=== PATIENT | male | born 1965 | race Caucasian/White ===

== ENCOUNTER 2017-06-26 21:00 | Inpatient (IN) | payer SELFPAY ==
[~2017-06-26] VITALS: Ht 185.4 cm; Wt 127.2 kg
[~2017-06-26 21:00] MED LIST: HYDR25TA4 PO; Metoprolol Tartrate PO
[2017-06-26 21:02] VITALS: BP 212/93; PULSE 54; RESP 18; O2SAT 100
--- NOTE | 2017-06-26 21:50 | DRSVH ---
PROCEDURE: X-RAY CHEST ONE VIEW, PORTABLE ([id number]) INDICATIONS: CHEST PAIN TECHNIQUE: One view of the chest was acquired. COMPARISON: [facility], , CHEST 1VW (PORTABLE), 12/19/2014, 17:52. FINDINGS: Surgical changes and devices: None. Lungs and pleura: No pleural effusions or pneumothorax. Lungs are clear. Mediastinum: Mediastinal contours appear normal. Heart size is normal. Bones and chest wall: No suspicious bony lesions. Overlying soft tissues appear unremarkable. IMPRESSION: No acute pulmonary process. Dictated by: Neli Villar M.D. on 06/26/2017 at 21:48 Approved by: Neli Villar M.D. on 06/26/2017 at 21:48
[2017-06-26 21:59] LABS: BASOPHILS % (AUTO) 0.5 % (0-3); EOSINOPHILS % (AUTO) 2.9 % (0-5); MONOCYTES % (AUTO) 7.7 % (4-12); Mean Corpuscular Hemoglobin 28.3 pg (27.0-35.0); Mean Corpuscular Volume 84.4 fL (81-100); NEUTROPHILS % (AUTO) 61.6 % (40-74); Platelet Count 232 bil/L (150-400)
[2017-06-26 22:22] LABS: TROPONIN T 0.01 ug/L (0.0-0.011)
[2017-06-26 22:33] LABS: Magnesium 2.1 mg/dL (1.6-2.6)
--- NOTE | 2017-06-26 22:45 | ED.REPORT ---
HPI-General Illness Date of Service Jun 26, 2017 ED Provider: Jarrod Camejo MD The pt is a 52 y/o male with a hx of stage 3 chronic kidney disease and HTN who presents to the ED complaining of 6/10 chest pain described as pressure, nonradiating, onset today while he was exerting himself at work. He has had this pain for a week but it significantly worsened today. His pain resolves when he is at rest. Associated sx include high BP of 163/101 and shortness of breath with pain, and fatigue. Not having shortness of breath independent of his pain. He denies any other sx like lightheadedness, headache, abdominal pain , diarrhea, constipation. vomiting, hematemesis, hematuria and hematochezia. In the ED, the pt feels significantly better resting in the bed. Nursing Notes Stated Complaint: CHEST PAIN Chief Complaint: Chest Pain Nursing Notes Reviewed: Yes Allergies: Coded Allergies: Penicillins (Verified Allergy, Unknown, UNKNOWN, 06/26/17) Scheduled ([Metoprolol Tartrate]) 25 MG TABLET 25 MG PO Q12 General Time Seen by MD: 23:11 Chief Complaint Chest pain Hx Obtained From: Patient Arrived By: Walk-in Sudden in Onset?: Yes Onset Occurred: 5 - 8 hours ago Symptom Duration: 1 - 15 minutes (only when exerting himself) Location: : Chest Quality: Pressure Radiation: : Does not radiate Severity: Current: No pain currently Severity: Maximum: Pain level 6 out of 10 Recent Healthcare: No recent doctor visit Similar Sx Previous: No Past Medical History Past Medical History Stage 3 kidney disease Reports: Hypertension Past Surgical History Knee surgery Family History Grandfather (maternal) at 40 Father had multiple OH Smoking History Never Smoker Social History Alcohol Use: "Social" Ambulatory Status Independent Review of Systems Reports: hypertension Full Review of Systems Constitutional: Reports: Fatigue Eyes: Denies: Visual loss bilateral Ears / Nose / Throat: Denies: Sore throat Respiratory: Reports: Shortness of breath (with exertion) Cardiovascular: Reports: Chest pain GI: Denies: Abdominal pain, Constipation, Diarrhea, Hematemesis, Hematochezia, Vomiting Male: Denies Hematuria Musculoskeletal: Denies: Back pain Endocrine: Denies: Polyuria Skin: Denies Rash Neurologic: Denies: Headache, Lightheaded Psychiatric: Denies: Change mental status Complete sys rev & neg: except as marked. Physical Exam Nursing note and vitals reviewed. Constitutional: Well-developed, well-nourished. Not diaphoretic. Head: Normocephalic and atraumatic. Mouth/Throat: Oropharynx is clear and moist. No oropharyngeal exudate. Eyes: EOM are normal. Pupils are equal, round, and reactive to light. Neck: Supple, no tracheal deviation. Cardiovascular: Bradycardia, regular rhythm. Equal and intact distal pulses throughout. Pulmonary/Chest: Effort normal and breath sounds normal. No respiratory distress. Abdominal: Soft. No distension. There is no tenderness, rebound, or guarding. Bowel sounds present. Musculoskeletal: Range of motion grossly intact, moving all extremities. No edema or tenderness appreciated. Neurological: AOx3. Grossly nonfocal exam. Strength and sensation intact and equal to bilateral upper and lower extremities. Skin: Warm and dry, no rashes or pallor appreciated. Psychiatric: Appropriate mood and affect. Behavior appears normal. Vital Signs Vital Signs Date Time Temp Pulse Resp B/P Pulse Ox O2 Delivery O2 Flow Rate FiO2 06/27/17 00:23 52 16 179/86 99 Room Air 06/26/17 21:02 36.5 54 18 212/93 100 Room Air Interpretation & Diagnostics Lab Results Interpretation Result Diagram: 06/26/17213906/26/172139 Test 06/26/17 21:40 White Blood Count 7.9th/mm3 (3.8-10.1) Red Blood Count 5.05mil/mm3 (4.40-5.80) Hemoglobin 14.3g/dL (13.8-17.2) Hematocrit 42.6% (41.0-50.0) Mean Corpuscular Volume 84.4fL (81-100) Mean Corpuscular Hemoglobin 28.3pg (27.0-35.0) Mean Corpuscular Hemoglobin Concent 33.6% (32.0-37.0) Red Cell Distribution Width 13.3% (12.3-15.4) Platelet Count 232bil/L (150-400) Neutrophils (%) (Auto) 61.6% (40-74) Lymphocytes (%) (Auto) 27.2% (14-46) Monocytes (%) (Auto) 7.7% (4-12) Eosinophils (%) (Auto) 2.9% (0-5) Basophils (%) (Auto) 0.5% (0-3) Sodium Level 138mEq/L (134-144) Potassium Level 3.9mEq/L (3.5-5.2) Chloride Level 99mEq/L (97-108) Carbon Dioxide Level 23mmol/L (18-29) Blood Urea Nitrogen 25mg/dL (6-24) Creatinine 1.72mg/dL (0.76-1.27) Estimat Glomerular Filtration Rate 44mL/min (>59) Glucose Level 104mg/dL (60-99) Calcium Level 9.2mg/dL (8.5-10.1) Magnesium Level 2.1mg/dL (1.6-2.6) Total Bilirubin 0.4mg/dL (0.0-1.2) Aspartate Amino Transf (AST/SGOT) 33U/L (0-50) Alanine Aminotransferase (ALT/SGPT) 40U/L (0-44) Alkaline Phosphatase 78U/L (25-150) Troponin T 0.010ug/L (0.0-0.011) Total Protein 7.4g/dL (6.4-8.4) Albumin 4.2g/dL (3.4-5.0) Hold Davila Top Tube Received (Received) ECG Interpretation ECG Interpretation: Bradycardia. Rate 46. Atrial premature complex Time: 21:27 Interpreted by: ED physician X-Ray Chest Interpretation Chest Xray Interpretation: IMPRESSION: No acute pulmonary process. Dictated by: Neli Villar M.D. on 06/26/2017 at 21:48 Approved by: Neli Villar M.D. on 06/26/2017 at 21:48 View: Portable, 1 view Interpretation / Wet Read by: Interpret - Radiologist Re-Eval/Medical Decision Med Decision/Clinical Course In summary, 52-year-old male presenting to the ED for evaluation of midsternal, nonradiating, exertional chest pain that started 1 week ago, worse today. Differential includes ACS, PE, pneumothorax, aortic dissection, etc. EKG demonstrates sinus bradycardia with no acute ischemic changes; initial troponin negative. Not having any chest pain at this time. HEART score of 5. Not having any pleuritic symptoms, no shortness of breath independent of when he is exerting himself, low risk by Well's score. Not radiating through to the back, no widened mediastinum on chest x-ray, equal pulses to bilateral upper and lower extremities, no neurologic symptoms; air dissection seems extremely unlikely. No evidence of pneumothorax on exam or x-ray. Laboratory studies reviewed and notable for creatinine of 1.72 from 1.05 2 years ago. CBC grossly within normal limits, CMP otherwise grossly within normal limits. Given concerning story and patient's risk, plan admission for further management and evaluation, likely stress test in the morning. Patient agreeable to the plan as stated, no further questions. Discussed with cardiology and the hospitalist as per below. Source of Hx: Old records Time of Eval: 23:30 Re-Evaluation/Progress Note: Discussed lab results, imaging results, diagnosis and plan to admit. The pt understands and agrees with the plan. All questions answered. Consultation #1: Referral / Consult Name: Armand Cunha MD Consulted With: Java Lead: Agrees with eval, Agrees with plan Consultation #2: Referral / Consult Name: Collin Lynn MD Consulted With: Hospitalist Call Returned at: 23:19 Button Maker: Will see patient, Agrees with eval, Agrees with plan, Accepts admit Counseled Regarding: Diagnosis, Lab results, Need for admission Discharge & Departure Primary Impression: Chest pain Chest pain type: unspecified Qualified Code: R07.9 - Chest pain, unspecified Additional Impression: Acute kidney injury Disposition: ADMITTED TO HOSPITAL Referrals: Freddy Warner MD (PCP) Scribe Attestation Portions of this note were transcribed by Jayson Brown. I,, personally performed the history,physical exam and medical decision-making;I reviewed and confirmed the accuracy of the information in the transcribed note. Signed by [employer]. 06/26/17 Jarrod Camejo MD Jun 26, 2017 22:45 Jayson Brown Jun 26, 2017 23:04
[2017-06-26] MEDS ORDERED: Alum-Mag Hydrox-Simeth 30 mL Suspension PO PRN (23:35)
[2017-06-26] MEDS ORDERED: Ondansetron 2 mg/mL 2 mL Inj IVPUSH PRN (23:35)
[2017-06-26] MEDS ORDERED: Polyethylene Glycol (PEG) 17 Gm Powder PO PRN (23:35)
[2017-06-27] VITALS (9 sets, daily range): BP systolic 127–196; BP diastolic 74–98; PULSE 43–56; RESP 16–18; O2SAT 98–100
--- NOTE | 2017-06-27 01:16 | PCM.HPMED ---
Subjective Date of Service Jun 27, 2017 Primary Provider: Admitting Physician: Primary Care Physician: Freddy Warner MD Attending Physician: Chief Complaint: Chest Pain History of Present Illness: Patient is a 52 year old male with past medical history of HTN and CKD stage III who presented after an episode of chest pain during exertion yesterday afternoon while at work. Patient states the pain was a tight sensation that did not radiate. Pain was 7/10 and was relieved with rest. The episode lasted 5 minutes. Patient did not take any ASA or Nitro during the episode. Associated symptoms include SOB. Denies any diaphoresis, QUINTANILLA, N/V/D, or urinary sxs. He states that he has been having this chest tightness on exertion for the past week, but this episode was worse than his normal episodes. Patient reports that he has had a exercise stress test in the past through Dr. Hayes and that it was normal. He takes Metoprolol 100g daily, and feels that his medication makes him more tired than before. Patient denies any claudication symptoms during exertion. Review of Systems: ROS negative unless otherwise noted above. Allergies Coded Allergies: Penicillins (Verified Allergy, Unknown, UNKNOWN, 06/26/17) Home Medications ASA 81mg PO daily Losartan 50mg PO daily Metoprolol 100mg PO nightly. PMH HTN CKD Stage 3 Surgical History Right Knee surgery Family History Mother - CAD; HTN Father - CAD with an OK at age 39. Social History Hx Alcohol Use: Yes (occassional ) Hx Substance Use: No Smoking Status: Never Smoker Living Arrangement: with Family Exam Vital Signs Vital Sign - Last Date Time Temp Pulse Resp B/P Pulse Ox O2 Delivery O2 Flow Rate FiO2 06/27/17 00:23 52 16 179/86 99 Room Air 06/26/17 21:02 36.5 Exam Constitutional: Awake, alert and oriented x4, no acute distress Head: normocephalic and atraumatic Eyes: Pupils equal round and reactive to light, no scleral icterus Heart: Bradycardia with regular rhythm. no murmurs, rubs, or gallops, no peripheral edema Lungs: clear to auscultation, no wheeze, rales ,or rhonchi ABD: soft, nontender, bowel sounds present throughout Musculoskeletal: moves all four extremities appropriately Skin: warm, dry, no rash Neuro: CN II-XII intact. no focal deficits. Psych: Appropriate mood and affect. Lab and Diagnostics Labs Item Value Date Time Red Blood Count 5.05 mil/mm3 06/26/172139 Mean Corpuscular Volume 84.4 fL 06/26/172139 Mean Corpuscular Hemoglobin 28.3 pg 06/26/172139 Mean Corpuscular Hemoglobin Concent 33.6 % 06/26/172139 Red Cell Distribution Width 13.3 % 06/26/172139 Neutrophils (%) (Auto) 61.6 % 06/26/172139 Lymphocytes (%) (Auto) 27.2 % 06/26/172139 Monocytes (%) (Auto) 7.7 % 06/26/172139 Eosinophils (%) (Auto) 2.9 % 06/26/172139 Basophils (%) (Auto) 0.5 % 06/26/172139 Estimat Glomerular Filtration Rate 44 mL/min 06/26/172139 Calcium Level 9.2 mg/dL 06/26/172139 Magnesium Level 2.1 mg/dL 06/26/172139 Total Bilirubin 0.4 mg/dL 06/26/172139 Aspartate Amino Transf (AST/SGOT) 33 U/L 06/26/172139 Alanine Aminotransferase (ALT/SGPT) 40 U/L 06/26/172139 Alkaline Phosphatase 78 U/L 06/26/172139 Troponin T 0.010 ug/L 06/26/172139 Total Protein 7.4 g/dL 06/26/172139 Albumin 4.2 g/dL 06/26/172139 Result Diagram: 06/26/17213906/26/172139 X-Rays, CTs and MRIs PROCEDURE: X-RAY CHEST ONE VIEW, PORTABLE IMPRESSION: No acute pulmonary process. Dictated by: Neli Villar M.D. on 06/26/2017 at 21:48 12-lead ECG Sinus bradycardia HR 46 with premature atrial complexes Assessment & Plan Patient is a 52 year old male with past medical history of HTN and CKD stage III who presented after an episode of chest pain during exertion yesterday afternoon while at work. - Acute Unstable Angina, POA, Active - Patient presented after episode of CP that was worse than normal - Patient MARCO ANTONIO Risk Score 3, places pt at 13% risk for new OK; strong family h/ o CAD with father's first OK at age 39 - Consult Cardiology (), will see patient in AM and plan for stress test - Hold home dose Beta Beth - Continue Losartan for BP control - Morphine PRN - NTG PRN - ASA 81mg PO - AM labs: CBC, CMP, TSH, Lipid Panel, HgbA1c - Acute Uncontrolled HTN, POA, Active, Stable - Continue home dose of Losartan - Hold home dose of Metoprolol until after stress test - History of CKD Stage III, Chronic, Stable - Patient SCr on admission 1.72 without any recent baseline, reports no current urinary sxs. - Monitor Daughter is primary point of contact: Sharona [phone] Patient is FULL CODE Pain Evaluation: Adequate Pain Control GI Prophylaxis: Proton Pump Inhibitor VTE Prophylaxis Indicated: Contraindicated VTE Prophylaxis: SCDs VTE Mechanical Devices: Intermittant Pneumatic CD Resuscitation Status: CPR: Attempt Resuscitation Attending Statement The patient was seen and examined together with Dr. Maher on 06/26 and I agree with the history, exam and plan as outlined in the note above. Tomas Maher DO Jun 27, 2017 01:16 Collin Lynn MD Jun 27, 2017 06:35
[2017-06-27] MEDS ORDERED: METO-394 PO (02:18)
[2017-06-27] MEDS ORDERED: LOSA50TA37 PO (02:18)
[2017-06-27] MEDS ORDERED: Nitroglycerin 2% 1 Gm Ointment TOPICAL SCH (06:35)
--- NOTE | 2017-06-27 06:38 | NUR ---
Admit Admitted to 3003 from ED. Able to ambulate on arrival. Denies CP or discomfort. Denies SOB on RA. NPO for possible stress test. Toileting without any noted issues. Elevated BP noted. MD notified with new orders received. Awaiting pharmacy verification for medication removal and administration. Personal belongings at bedside per patient request. Oriented to call light use and using for needs.
[2017-06-27] MEDS ORDERED: ASPI-973 PO (09:48)
[2017-06-27] MEDS ORDERED: IBUP200C11 PO (09:49)
--- NOTE | 2017-06-27 09:54 | NUR ---
NITRO PASTE Nitro paste removed at this time for procedure.
--- NOTE | 2017-06-27 14:10 | NUR ---
Off Unit Pt left unit for STRESS Test at 1235, returned at 1400.
--- NOTE | 2017-06-27 17:16 | NUR ---
Social Work: Initial Assessment / Multidisciplinary Rounds Data: See initial assessment. Patient is a 52 year old male who was admitted on 06/27/17 for stable angina and acute or chronic renal insufficiency per H&P. Patient does not have any insurance at this time. Patient does not have a PCP at this time. EMR reviewed. SW met with patient to discuss discharge planning. SW role explained. Patient resides at home alone in [place]. Patient considers his daughter Sharona to be his main support person. Patient states that he does not have a DPOA or AD. SW has provided patient with AD and a luann application per his request. Patient confirms that he is I at baseline and able to perform all ADLs and care needs without any DME. Patient confirms that he drives via POV. Patient denies having a hx of home health services or SNF. Patient denies having assisted care insurance or VA benefits. Upon discharge, patient states that transportation will be provided by his daughter Sharona. SW provided patient with a discharge planning checklist booklet and encouraged to call with any questions or concerns. Patient was discussed in morning rounds. No concerns were noted by MD or staff. SW will continue to follow. Assessment: Patient will likely discharge home when medically stable. Plan: Patient will likely discharge home when medically stable. Transportation will be provided by patient's daughter Sharona. SW will continue to follow for needs. GABRIELLE Manjarrez Addendum: 06/27/17 at 1721 by PEGGY CARTER SS Amended: Links added.
--- NOTE | 2017-06-27 18:19 | NUR ---
Uneventful shift Pt cooperative with staff and care, able to make needs known, and independent in the room. Pt denies CP or discomfort. Has c/o about being in hospital, mostly concerned about paying hospital bill. Pt resting comfortably in bed with call light within reach, bed low and locked, intentional rounding.
[2017-06-27] MEDS: Pantoprazole 20 mg ER24 Tablet PO SCH (20:30)
[2017-06-28] VITALS (8 sets, daily range): BP systolic 135–179; BP diastolic 75–101; PULSE 49–56; RESP 16–18; O2SAT 94–100
[2017-06-28 05:38] LABS: BASOPHILS % (AUTO) 0.3 % (0-3); EOSINOPHILS % (AUTO) 4.7 % (0-5); MONOCYTES % (AUTO) 8.3 % (4-12); Mean Corpuscular Hemoglobin 28.2 pg (27.0-35.0); Mean Corpuscular Volume 82.6 fL (81-100); NEUTROPHILS % (AUTO) 63.7 % (40-74); Platelet Count 241 bil/L (150-400)
--- NOTE | 2017-06-28 05:43 | NUR ---
Uneventful Night: Pt had an uneventful night, no c/o pain, chest pain or SOB. Pt slept most of the night, pleasant and cooperative with care.
[2017-06-28] MEDS: Pantoprazole 20 mg ER24 Tablet PO SCH ×2 (08:20→19:57)
--- NOTE | 2017-06-28 12:08 | NUR ---
Tx of care Assumed care of pt at 1145 from Kathryn Cano RN. Pt A&O, denies any pain, sitting up EOB. Pt wanting to know if stent is required or if he's able to dc home - will update pt as this RN is aware. Bed in lowest, locked position and call light in reach.
--- NOTE | 2017-06-28 14:01 | NUR ---
Social Work- Readiness for Discharge/Multidisciplinary Rounds Data: EMR reviewed. Pt is on day 1 of hospitalization. Pt discussed in multidisciplinary rounds, pt to receive echo and Cardiology consult. Pt may be able to d/c today pending echo results. No orders active at this time. SW met with pt at bedside to confirm d/c plan. Pt is independent at baseline, daughter will transport him home and be available to assist him if necessary. No anticipated d/c needs, SW will continue to follow if needs arise. Assessment: Pt who is independent with ADLs and self-care Plan: Pt likely to d/c home with daughter to transport via POV. No anticipated d/c needs, SW will continue to follow. GABRIELLE Grant
--- NOTE | 2017-06-28 14:20 | PCM.PNMED ---
Subjective Date of Service Jun 28, 2017 Subjective Patient finished resting part of the stress test today Remained asymptomatic overnight Exam Vital Signs Vital Sign - Last Date Time Temp Pulse Resp B/P Pulse Ox O2 Delivery O2 Flow Rate FiO2 06/28/17 13:13 36.4 52 18 163/95 99 Room Air Intake and Output 06/27/17 06/27/17 06/28/17 Cumulative From/Thru 15:00 23:00 07:00 06/26/17 21:02 - 06/28/17 06:11 Intake Total 636 ml 473 ml 1109 ml Output Total 1400 ml 500 ml 200 ml 2825 ml Balance -1400 ml 136 ml 273 ml -1716 ml Intake Oral 636 ml 473 ml 1109 ml Output Urine Total 1400 ml 500 ml 200 ml 2825 ml # Voids 2 2 # Bowel Movements 0 0 Exam NAD, comfortably laying down on the bed no JVD, MMM, no LAD RRR, nl s1, s2 no mrg CTAB, no w,c S,ND,NT,normoactive BS+ warm, no edema, pulses 2/2 IVs and Medications Medications Reviewed: Medications were reviewed in detail Lab and Diagnostics Result Diagram: 06/28/1751406/28/17514 X-Rays, CTs and MRIs PROCEDURE: X-RAY CHEST ONE VIEW, PORTABLE IMPRESSION: No acute pulmonary process. Dictated by: Neli Villar M.D. on 06/26/2017 at 21:48 12-lead ECG Sinus bradycardia HR 46 with premature atrial complexes Assessment & Plan Patient is a 52 year old male with past medical history of HTN and CKD stage III who presented after an episode of chest pain during exertion yesterday afternoon while at work. - Acute Unstable Angina, POA, Active, Patient presented after episode of CP that was worse than normal, Patient MARCO ANTONIO Risk Score 3, places pt at 13% risk for new MT; strong family h/o CAD with father's first MT at age 39. stress test 2days protocol showed perfusion defect verbally reported per . pt was loaded with DAPT, [id number] 06/27. -appreciate cardiology followup -pt will likely needs cath tomorrow, NPO after MN per -awaits TTE result - continue aspirin, plavix, BB, high intensity statin, - Morphine PRN, NTG PRN for pain - Acute Uncontrolled HTN, POA, Active, Stable - Continue home dose of Losartan - Hold home dose of Metoprolol until after stress test - History of CKD Stage III, Chronic, Stable - Patient SCr on admission 1.72 without any recent baseline, reports no current urinary sxs. - Monitor dispo: cath tomorrow, likely d/c Thursday Daughter is primary point of contact: Sharona [phone] Patient is FULL CODE GI Prophylaxis: Proton Pump Inhibitor VTE Prophylaxis: SCDs VTE Mechanical Devices: Intermittant Pneumatic CD Resuscitation Status: CPR: Attempt Resuscitation Time spent 35 minutes Rosmery Norris MD Jun 28, 2017 14:20
--- NOTE | 2017-06-28 15:46 | DRSVH ---
Caution: Report not yet finalized and possibly incomplete! PROCEDURE: TWO DAY STRESS TEST REFERRING PHYSICIAN: Dr. Norris INDICATIONS: Mr. Meehan is a 52-year-old gentleman hospitalized yesterday with symptoms of chest dis comfort. He has multiple cardiac risk factors including chronic renal disease and nuclear cardiac st ress study is performed to evaluate for the presence of significant underlying obstructive coronary d isease. COMPARISON: None. STRESS TEST: This gentleman was exercised according to a regular Alejo protocol for a total of 6 min utes and 53 seconds, stopping due to symptoms of progressive dyspnea and mild sternal chest discomfor t. Overall exercise capacity was 18% worse than expected for a sedentary male. Baseline EKG shows n ormal sinus rhythm with no significant ST or T-wave abnormalities. With stress, he develops around a millimeter to a millimeter and a half of down-sloping ST segment depression in the inferolateral leeanne ds with very slow, gradual recovery. PROCEDURE: This gentleman received 23.4 mCi of technetium-99 tetrofosmin for the stress portion of t he examination. He returned 1 day later for the resting portion of the examination and received an a dditional 20.3 mCi. FINDINGS: 1. Raw Data: Raw data imaging shows overall good image quality. No significant source of artifact or interference is identified. 2. Quantitative Gated SPECT Imaging: Stress gated images show a normal-size left ventricular volume with an end diastolic volume of 116 cc. The ejection fraction is estimated at 59%, although there i s a significant area of akinesis involving the apical portion of the left ventricle and the intervent ricular septum as well. 3. Quantitative Perfusion SPECT Imaging: Stress myocardial perfusion imaging shows an area of dense hypoperfusion involving the apex and the distal and mid anteroseptal wall that is nearly completely reversed or resolved on rest imaging, with just a small, mild focal apical area of hypoperfusion. IMPRESSION: 1. Markedly abnormal nuclear cardiac stress study with reduced exercise capacity and symptoms of dys pnea and mild angina associated with electrocardiogram changes. 2. Ischemic apical left ventricular systolic dysfunction with preserved ejection fraction. 3. Moderately large area of reversible hypoperfusion involving the territory of the mid and distal l eft anterior descending. DISCUSSION: Nuclear cardiac stress study suggests significant underlying ischemic heart disease. Ca rdiology consultation and cardiac catheterization are recommended. Dictated by: Saul Díaz M.D. on 06/28/2017 at 13:27 Transcribed by: ALIZE on 06/28/2017 at 18:45
--- NOTE | 2017-06-28 16:25 | DRSVH ---
[facility] [address] [place] [place] [address] Echocardiogram Report Name: DELANEY PATIÑO Study Date: 06/28/2017 Height: 73 in Hospital Exam Location: [facility] Weight: 289 lb Gender: Male BSA: 2.5 m2 : 1965 Age: 52 yrs BP: 162/88 mmHg Reason For Study: ACS Ordering Physician: Performed By: Sukumar Regalado Interpretation Summary There is mild concentric left ventricular hypertrophy. The ejection fraction is estimated to be 60-65%. There are no focal wall motion abnormalities. The right ventricle is normal in size and function. There is no significant valvular heart disease. No other echocardiographic abnormalities seen. Procedure: A two-dimensional transthoracic echocardiogram with color flow and Doppler was performed. The study quality was technically adequate. Comparison is made with the echocardiogram of 12/20/14. The patient was in normal sinus rhythm during the exam. Left Ventricle: The left ventricle is normal in size. There is mild concentric left ventricular hypertrophy. The ejection fraction is estimated to be 60-65%. There are no focal wall motion abnormalities. Assessment of diastolic parameters indicates normal left ventricular diastolic function and normal filling pressures. Right Ventricle: The right ventricle is normal in size and function. Atria: Both atria are normal in size. The interatrial septum is intact with no evidence for an atrial septal defect. Mitral Valve: The mitral valve is normal in structure and function. There is trace mitral regurgitation. Aortic Valve: The aortic valve is normal in structure and function. The aortic valve is trileaflet. The aortic valve opens well. No aortic regurgitation is present. Tricuspid Valve: The tricuspid valve is normal in structure and function. No tricuspid regurgitation. Pulmonary artery pressures cannot be estimated because of the lack of a measurable TR jet velocity. Pulmonic Valve: The pulmonic valve is normal in structure and function. There is trace pulmonic regurgitation. Great Vessels: The aortic root is normal size. The ascending aorta is mildly enlarged. The pulmonary artery is normal size. The IVC is of normal diameter and collapses greater than 50% with a sniff. This suggests a low right atrial pressure of 3 mm Hg. Pericardium/ Pleura There is no pericardial effusion. There is no pleural effusion. MMode/2D Measurements & Calculations LVIDd: 5.0 cm LA dimension: 4.8 cm LVIDs: 3.0 cm FS: 40.8 % LA A2 area: 22.0 cm EPSS: 0.42 cm LA A4 area: 22.7 cm IVSd: 1.1 cm LA length (vol): 6.1 cm LVPWd: 1.1 cm LA vol: 69.5 ml LA vol index: 27.6 ml/m IVC diam: 1.9 cm RA long axis: 5.6 cm Ao root diam: 3.3 cm RA area: 18.5 cm Aortic Jxn: 2.8 cm RA vol: 52.0 ml asc Aorta Diam: 3.6 cm RA : 20.7 ml/m2 LV tay. diameter/BSA (cm/m^2): 2.0 LV sys. diameter/BSA (cm/m^2): 1.2 Doppler Measurements & Calculations Ao V2 max: 154.0 cm/sec MV E max matheus: 99.4 cm/sec Ao max P.5 mmHg MV A max matheus: 78.6 cm/sec Ao mean P.2 mmHg MV E/A: 1.3 PA V2 max: 101.2 cm/sec Med Peak E' Matheus: 7.4 cm/sec PA mean P.5 mmHg E/E' med: 13.5 PA Accel Time: 0.14 sec Lat Peak E' Matheus: 9.7 cm/sec E/E' lat: 10.3 E/e' average: 11.9 Pulm A Revs Matheus: 33.1 cm/sec MV dec time: 0.22 sec Ao V2 mean: 109.7 cm/sec Ao V2 VTI: 33.8 cm PA V2 mean: 75.9 cm/sec PA pr(Accel): 16.1 mmHg Reading Physician:04:26 PM
--- NOTE | 2017-06-28 17:43 | NUR ---
BP BP 179/101 with a HR of 52. Per TELE, pt's HR has maintained low-mid 50's throughout this shift. Pt denies any CP/discomfort. No PRN BP meds noted. cookpaged with above info.
--- NOTE | 2017-06-28 20:29 | CONS ---
[address] [address] CONSULTATION REPORT PATIENT: DELANEY PATIÑO : 1965 MR#: [id number] ADMIT: 06/27/2017 JOB ID: [id number] DATE OF SERVICE: 06/28/2017 I have been asked by the hospitalist to see the patient who presents with symptoms of angina-like chest discomfort and has strongly positive nuclear cardiac stress test. The patient states that he has had no past known cardiac history but presents with a one-week history of mild exertional precordial chest discomfort relieved with rest and then, on the day of admission, yesterday, had an episode of substernal precordial pressure/tightness at work that lasted about 5 minutes associated with symptoms of dyspnea but without nausea or diaphoresis and. For that reason, he presented to the emergency department for evaluation and was admitted. He was placed on medical therapy and yesterday afternoon underwent a nuclear cardiac stress study which was abnormal and demonstrated significant anteroapical perfusion abnormality and wall motion abnormality and a resting examination today shows resolution of the perfusion abnormality and normalization of ventricular function, to a great extent. He has had no recurrent anginal discomfort since admission to the hospital. REVIEW OF SYSTEMS: Otherwise unremarkable. He denies any past history of stroke or stroke-like symptoms. He has no history of bleeding problems. He has no upcoming surgical procedures scheduled. He has no contraindication to anti-platelet therapy. He denies any palpitations or dysrhythmias and no complaints of significant nocturnal pulmonary congestion or rest pain. PAST MEDICAL HISTORY: Includes a history of chronic hypertension for a number of years as well as moderate to chronic renal insufficiency. He has not seen a kidney specialist in the past and knows he has kidney problems but is unaware of the etiology of his kidney issues. HOME MEDICATIONS: 1. A baby aspirin daily. 2. Losartan 50 mg daily. 3. Metoprolol 100 mg daily. ALLERGIES: PENICILLIN. FAMILY HISTORY: Includes a strong family history of premature coronary disease. His father had a myocardial infarction at age 39 and his mother has a history of hypertension and coronary disease. Apparently was recently in the hospital following an [id number] cardiac arrest for which she received a couple of stents and a defibrillator. SOCIAL HISTORY: The patient is not . I do not know if he is or . He is a nonsmoker. He lives in [place]. 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 His daughter is a ENGRAVER [employer]CTURE at [employer]. PHYSICAL EXAMINATION: Shows a very pleasant, 52-year-old gentleman who does not appear in any distress. He is 6 feet 1 inch tall and 288 pounds with a body mass index of 38. Vital signs have demonstrated moderate hypertension with blood pressures ranging between 130 and 160, heart rates in the 40s to 50s on his current beta radha therapy with normal temperature and normal room air O2 saturation. Physical exam otherwise shows a slightly plethoric 52-year-old gentleman, moderately obese. HEENT examination otherwise unremarkable without any xanthoma. He has clear lung sewell. He has an erythematous cynthia linear rash in spots over his back. He has clear lung sewell. Cardiac auscultation is unremarkable with a moderate bradycardia, distant heart tones and no significant cardiac murmur. Abdomen is obese. No abdominal bruits or masses identified. Distal extremity pulses are normal. He has no particular lower extremity edema. I hear no femoral bruits. No obvious musculoskeletal abnormality. He he is mildly anxious but provides a good history without any psychiatric issues. LABORATORY DATA: Shows normal CBC, creatinine 1.38 which is better than admission at 1.72. His electrolytes are normal. Liver function tests are normal. Serial troponins are normal. Total cholesterol is 180 with an LDL cholesterol of 124 and an HDL cholesterol of 37. TSH level is normal. Chest x-ray is unremarkable with normal heart size and clear lung sewell. IMPRESSION: The patient presents with a symptom consistent with underlying ischemic heart disease, a strong family history and a long history of chronic hypertension, and an abnormal nuclear cardiac stress study suggesting high-grade disease involving his mid LAD. RECOMMENDATIONS: I will schedule the patient for diagnostic coronary angiography in the morning as well as probable intervention. To preserve contrast, I will ask one of my interventional colleagues to proceed with the procedure with instructions to conserve contrast as much as feasible. I have reviewed the heart catheterization procedure in details with the patient and I talked about the potential risks, particularly the possibility of progressive renal insufficiency as a result of the x-ray dye. He understands these risks and was able to ask questions about the procedure and is anxious to proceed as recommended. Will keep the patient n.p.o. in the morning, and I will provide the orders and will discuss with my interventional colleague in the morning for appropriate timing.
[2017-06-29] VITALS (14 sets, daily range): BP systolic 144–172; BP diastolic 73–99; PULSE 42–52; RESP 12–16; O2SAT 95–99
--- NOTE | 2017-06-29 04:59 | NUR ---
NOC PT denies any CP. NO SOB. VS WNL. PT NPO since UT for stress test today. Tele has been in sinus isidra in high 40's to 50's. PT daughter came to visit earlier and brought his dog. PT comforted by this. PT will do hibiclens shower this am and fluids will be started at 0600 per order. WIll CTM for any s/s of cardiac distress and continue with current POC.
[2017-06-29] MEDS ORDERED: diphenhydrAMINE 25 mg Capsule PO ONE (06:00)
[2017-06-29] MEDS ORDERED: 0.9% Sodium Chloride 1,000 ML IV ONE ×2 (06:00)
[2017-06-29] MEDS ORDERED: Heparin 10,000 Unit/1,000 mL NS Premix IV ONE ×2 (08:43→09:45)
[2017-06-29] MEDS ORDERED: Heparin 1,000 Units/500 mL NS Premix IV ONE (08:43)
[2017-06-29] MEDS ORDERED: Nitroglycerin 50,000 mcg/250 mL D5W Premix IV ONE (08:43)
--- NOTE | 2017-06-29 08:45 | PCM.PNMED ---
Subjective Date of Service Jun 29, 2017 Subjective no overnight event, awaits cardiac cath today Exam Vital Signs Vital Sign - Last Date Time Temp Pulse Resp B/P Pulse Ox O2 Delivery O2 Flow Rate FiO2 06/29/17 05:12 36.6 45 16 144/73 95 Room Air Intake and Output 06/28/17 06/28/17 06/29/17 Cumulative From/Thru 15:00 23:00 07:00 06/26/17 21:02 - 06/29/17 06:10 Intake Total 1156 ml 400 ml 2665 ml Output Total 1200 ml 325 ml 4350 ml Balance -44 ml 75 ml -1685 ml Intake Oral 1156 ml 400 ml 2665 ml Output Urine Total 1200 ml 325 ml 4350 ml # Voids 2 # Bowel Movements 0 0 Exam NAD, comfortably laying down on the bed no JVD, MMM, no LAD RRR, nl s1, s2 no mrg CTAB, no w,c S,ND,NT,normoactive BS+ warm, no edema, pulses 2/2 IVs and Medications Medications Reviewed: Medications were reviewed in detail Lab and Diagnostics Result Diagram: 06/28/1751406/28/17514 X-Rays, CTs and MRIs PROCEDURE: X-RAY CHEST ONE VIEW, PORTABLE IMPRESSION: No acute pulmonary process. Dictated by: Neli Villar M.D. on 06/26/2017 at 21:48 12-lead ECG Sinus bradycardia HR 46 with premature atrial complexes Assessment & Plan Patient is a 52 year old male with past medical history of HTN and CKD stage III who presented after an episode of chest pain during exertion yesterday afternoon while at work. - Acute Unstable Angina, POA, Active, Patient presented after episode of CP that was worse than normal, Patient MARCO ANTONIO Risk Score 3, places pt at 13% risk for new UT; strong family h/o CAD with father's first UT at age 39. stress test 2days protocol showed markedly abnormal test, pt was loaded with DAPT, [id number] 06/27. -appreciate cardiology followup -cardiac cath today - continue aspirin,BB, high intensity statin, plavix held this AM. - Morphine PRN, NTG PRN for pain - Acute Uncontrolled HTN, POA, Active, Stable - Continue home dose of Losartan - Hold home dose of Metoprolol until after stress test - History of CKD Stage III, Chronic, Stable - Patient SCr on admission 1.72 without any recent baseline, reports no current urinary sxs. - Monitor dispo: cath tomorrow, likely d/c Thursday Daughter is primary point of contact: Sharona [phone] Patient is FULL CODE GI Prophylaxis: Proton Pump Inhibitor VTE Prophylaxis: SCDs VTE Mechanical Devices: Intermittant Pneumatic CD Resuscitation Status: CPR: Attempt Resuscitation Time spent 35min Rosmery Norris MD Jun 29, 2017 08:45
[2017-06-29] MEDS: Pantoprazole 20 mg ER24 Tablet PO SCH (08:50)
--- NOTE | 2017-06-29 08:53 | NUR ---
Pre procedure medication Pt prepared for label tacker. Up to the bathroom, steady gait observed. 25 mg of PO Metoprol given as ordered by Dr Díaz. IV x [address] Consent completed by Dr íDaz. Addendum: 06/29/17 at 0912 by EMMA MORALES RN Pt taken off the unit at approx 0900 to label tacker.
[2017-06-29] MEDS ORDERED: fentaNYL-PF 50 mCg/mL 2 mL Inj ONE (09:16)
[2017-06-29] MEDS ORDERED: Heparin 1,000 Unit/mL 10 mL Inj ONE (09:31)
--- NOTE | 2017-06-29 10:34 | DI95 ---
[address] [address] INTERVENTIONAL CARDIAC CATHETERIZATION PATIENT: DELANEY PATIÑO : 1965 MR#: [id number] ADMIT: 06/27/2017 JOB ID: [id number] DATE OF PROCEDURE: 06/29/2017 PATIENT PROFILE: The patient is a 52 years old male with history of hypertension and strong family history of premature coronary artery disease. The patient presented with acute coronary syndrome. PROCEDURE: 1. Retrograde left heart catheterization. 2. Selective coronary angiography. 3. Unsuccessful attempt angioplasty to the left anterior descending. 4. Left ventricular angiogram. 5. Vascular closure device, Perclose. COMPLICATIONS: None. METHOD: Retrograde left heart catheterization was performed from the right groin under 1% lidocaine local anesthesia using a 6-Canadian sheath. Selective coronary angiogram was performed in multiple projections, including cranial and caudal angulations with hand injected contrast via JL4 and 3DRC catheters. Heparin 13,000 units were given. The femoral sheath was up-sized to a 7-Canadian sheath. A 7-Canadian JL4 guide was advanced to the left coronary ostium. A Runthrough wire was placed inside the ramus intermedius. An attempt to cross the ostial left anterior descending artery lesion with a whisper and a Runthrough wire was unsuccessful. The procedure was terminated. A 6-Canadian angulated pigtail catheter was advanced to the left ventricle and left ventricular angiogram was performed in the 30 degree DEL VALLE view by injecting contrast at the rate of 12 cc per second for 3 seconds. This catheter was withdrawn. Right femoral angiogram was performed before sheath removal, hemostasis was achieved by using a Perclose device. The patient tolerated the procedure well. He was transferred to [facility] in good condition. TOTAL CONTRAST USED: 110 cc. FLUOROSCOPIC TIME: 8.7 minutes. RESULTS: 1. Selective coronary angiogram: a. Left main coronary artery is normal. b. The left anterior descending artery has ostial 95% stenosis and 60% stenosis in the proximal portion. c. The ramus intermedius is large and has 85% stenosis at its origin. d. The circumflex artery has minor irregularity of 20% to 40% stenosis. e. The dominant right coronary artery has diffuse minor irregularity of 20% to 40% stenosis. 2. An attempt angioplasty to the ostial left anterior descending artery lesion was unsuccessful due to unable to cross the lesion with the angioplasty wire. 3. Left ventricular angiogram demonstrated normal left ventricular systolic function (visually estimated ejection fraction 65%). There is no wall motion abnormality. There is no mitral regurgitation. 4. There is no gradient across the aortic valve on catheter withdrawal. 5. Aortic pressure is 150/73 mmHg. Left ventricular pressure is 151/8 mmHg. 6. Left ventricular end diastolic pressure is 13 mmHg. CONCLUSION: 1. Severe left anterior descending and ramus intermedius stenosis. 2. LVEF 65%. 3. LVEDP is 13 mmHg. PLAN: The patient will be referred for coronary artery bypass surgery x2. MTDD
[2017-06-29] MEDS ORDERED: Ondansetron 2 mg/mL 2 mL Inj IVPUSH PRN (11:05)
[2017-06-29] MEDS ORDERED: 0.9% Sodium Chloride 250 ML BOLUS IV PRN (11:05)
[2017-06-29] MEDS ORDERED: Atropine 1 mg/10 mL (Code) Syringe IVPUSH PRN (11:05)
[2017-06-29] MEDS ORDERED: 0.9% Sodium Chloride 400 ML (4 HRS) IV ONE (11:05)
[2017-06-29] MEDS ORDERED: Sodium Chloride LOK Flush 10 mL Syringe IVFLUSH PRN (11:05)
--- NOTE | 2017-06-29 11:30 | NUR ---
Transfer Per MARLENE, pt to be transferred to [facility] for probable Bypass. MD notified. Daughter Lorena returned to room to gather belongings.
--- NOTE | 2017-06-29 11:59 | NUR ---
Social Work-discharge: Data& assessment: EMR Reviewed. Pt is on day 2 of hospitalization for stable angina per H&P. SW updated by life coach that pt is being transferred to [place] today for procedure. No other SW needs identified. All updated and agreeable to plan. Plan:Pt to transfer to [place] today. No other SW needs identified. All updated and agreeable to plan. GABRIELLE Mattson
--- NOTE | 2017-06-29 14:12 | PCM.DC.MED ---
Discharge Summary Date of Service Jun 29, 2017 Dates of Hospitalization Date of Hospital Admission Jun 27, 2017 at 01:41 Date of Discharge: Jun 29, 2017 Providers: Admitting Physician: Collin Lynn MD Primary Care Physician: Frdedy Warner MD Attending Physician: Rosmery Norris MD Diagnosis at Time of Discharge Diagnosis at Time of Discharge acute dx typical angina, severe obstructive CAD chronic dx uncontrolled HTN CKD Consultations cardiology Procedures XRay, CTs & MRIs PROCEDURE: X-RAY CHEST ONE VIEW, PORTABLE IMPRESSION: No acute pulmonary process. Dictated by: Neli Villar M.D. on 06/26/2017 at 21:48 ECG 12 Lead Sinus bradycardia HR 46 with premature atrial complexes Cardiac Echo Impression Echocardiogram Report Name: DELANEY MEEHAN Study Date: 06/28/2017 Height: 73 in Hospital Exam Location: [facility] Weight: 289 lb Gender: Male BSA: 2.5 m2 : 1965 Age: 52 yrs BP: 162/88 mmHg Reason For Study: ACS Ordering Physician: Performed By: Sukumar Regalado Interpretation Summary There is mild concentric left ventricular hypertrophy. The ejection fraction is estimated to be 60-65%. There are no focal wall motion abnormalities. The right ventricle is normal in size and function. There is no significant valvular heart disease. No other echocardiographic abnormalities seen. Procedure: A two-dimensional transthoracic echocardiogram with color flow and Doppler was performed. The study quality was technically adequate. Comparison is made with the echocardiogram of 12/20/14. The patient was in normal sinus rhythm during the exam. Left Ventricle: The left ventricle is normal in size. There is mild concentric left ventricular hypertrophy. The ejection fraction is estimated to be 60-65%. There are no focal wall motion abnormalities. Assessment of diastolic parameters indicates normal left ventricular diastolic function and normal filling pressures. Right Ventricle: The right ventricle is normal in size and function. Atria: Both atria are normal in size. The interatrial septum is intact with no evidence for an atrial septal defect. Mitral Valve: The mitral valve is normal in structure and function. There is trace mitral regurgitation. Aortic Valve: The aortic valve is normal in structure and function. The aortic valve is trileaflet. The aortic valve opens well. No aortic regurgitation is present. Tricuspid Valve: The tricuspid valve is normal in structure and function. No tricuspid regurgitation. Pulmonary artery pressures cannot be estimated because of the lack of a measurable TR jet velocity. Pulmonic Valve: The pulmonic valve is normal in structure and function. There is trace pulmonic regurgitation. Great Vessels: The aortic root is normal size. The ascending aorta is mildly enlarged. The pulmonary artery is normal size. The IVC is of normal diameter and collapses greater than 50% with a sniff. This suggests a low right atrial pressure of 3 mm Hg. Pericardium/ Pleura There is no pericardial effusion. There is no pleural effusion. MMode/2D Measurements & Calculations LVIDd: 5.0 cm LA dimension: 4.8 cm LVIDs: 3.0 cm FS: 40.8 % LA A2 area: 22.0 cm EPSS: 0.42 cm LA A4 area: 22.7 cm IVSd: 1.1 cm LA length (vol): 6.1 cm LVPWd: 1.1 cm LA vol: 69.5 ml LA vol index: 27.6 ml/m IVC diam: 1.9 cm RA long axis: 5.6 cm Ao root diam: 3.3 cm RA area: 18.5 cm Aortic Jxn: 2.8 cm RA vol: 52.0 ml asc Aorta Diam: 3.6 cm RA : 20.7 ml/m2 LV tay. diameter/BSA (cm/m^2): 2.0 LV sys. diameter/BSA (cm/m^2): 1.2 Doppler Measurements & Calculations Ao V2 max: 154.0 cm/sec MV E max matheus: 99.4 cm/sec Ao max P.5 mmHg MV A max matheus: 78.6 cm/sec Ao mean P.2 mmHg MV E/A: 1.3 PA V2 max: 101.2 cm/sec Med Peak E' Matheus: 7.4 cm/sec PA mean P.5 mmHg E/E' med: 13.5 PA Accel Time: 0.14 sec Lat Peak E' Matheus: 9.7 cm/sec E/E' lat: 10.3 E/e' average: 11.9 Pulm A Revs Matheus: 33.1 cm/sec MV dec time: 0.22 sec Ao V2 mean: 109.7 cm/sec Ao V2 VTI: 33.8 cm PA V2 mean: 75.9 cm/sec PA pr(Accel): 16.1 mmHg Reading Physician:04:26 PM Invasive Procedures INTERVENTIONAL CARDIAC CATHETERIZATION PATIENT: DELANEY MEEHAN : 1965 MR#: [id number] ADMIT: 06/27/2017 JOB ID: [id number] DATE OF PROCEDURE: 06/29/2017 PATIENT PROFILE: The patient is a 52 years old male with history of hypertension and strong family history of premature coronary artery disease. The patient presented with acute coronary syndrome. PROCEDURE: 1. Retrograde left heart catheterization. 2. Selective angiography. 3. Unsuccessful attempt angioplasty to the left anterior descending. 4. Left ventricular angiogram. 5. Vascular closure device, Perclose. COMPLICATIONS: None. METHOD: Retrograde left heart catheterization was performed from the right groin under 1% lidocaine local anesthesia using a 6-Tuvaluan sheath. Selective angiogram was performed in multiple projections, including cranial and caudal angulation with hand contrast via JL4 and 3DRC catheter. Heparin 13,000 units were given. The femoral sheath was up-sized to a 7-Tuvaluan sheath. A 7-Tuvaluan JL4 guide was advanced to the left coronary ostium. A Runthrough wire was placed inside the ramus intermedius tree. An attempt to cross the ostial left anterior descending artery lesion with a whisper and a Runthrough wire was unsuccessful. The procedure was terminated. A 6-Tuvaluan angulated pigtail catheter was advanced to left ventricle and left angiogram was performed in the 30 degree DEL VALLE view by injecting contrast at the rate of 12 cc per second for 3 seconds. This catheter was withdrawn. Right femoral angiogram was performed before sheath removal, hemostasis was achieved by using a Perclose device. The patient tolerated procedure well. He was transferred to [facility] in good condition. TOTAL CONTRAST USED: 110 cc. FLUOROSCOPIC TIME: 8.7 minutes. RESULTS: 1. Selective angiogram: a. Left main coronary artery is normal. b. The left anterior descending artery has ostial 95% stenosis and 60% stenosis in the proximal portion. c. The ramus intermedius is large and has 85% stenosis at its origin. d. The circumflex artery has minor irregularity of 20% to 40% stenosis. e. The dominant right coronary artery has diffuse minor irregularity of 20% to 40% stenosis. 2. An attempt angioplasty to the ostial left anterior descending artery lesion was unsuccessful due to unable to cross the lesion with the angioplasty wire. 3. Left ventricular angiogram demonstrated normal left ventricular systolic function (visually estimated ejection fraction 65%). There is no wall motion abnormality. There is no mitral regurgitation. 4. There is no gradient across the aortic valve on catheter withdrawal. 5. Aortic pressure is 150/73 mmHg. Left ventricular pressure is 151/80 mmHg. 6. Left ventricular pressure is 13 mmHg. CONCLUSION: 1. Severe left anterior descending and ramus intermedius stenosis. 2. LVEF 65%. 3. LVEDP is 13 mmHg. PLAN: The patient will be referred for coronary artery bypass surgery x2. Tata Landrum MD 06/29/17 1011 Report status: Draft Transcribed by: PATRICE 06/29/17 1032 REPORT#: [id number] cc: Freddy Warner MD; Tata Landrum MD Other Diagnostics Caution: Report not yet finalized and possibly incomplete! PROCEDURE: TWO DAY STRESS TEST REFERRING PHYSICIAN: Dr. Norris INDICATIONS: Mr. Meehan is a 52-year-old gentleman hospitalized yesterday with symptoms of chest discomfort. He has multiple cardiac risk factors including chronic renal disease and nuclear cardiac stress study is performed to evaluate for the presence of significant underlying obstructive coronary disease. COMPARISON: None. STRESS TEST: This gentleman was exercised according to a regular Alejo protocol for a total of 6 minutes and 53 seconds, stopping due to symptoms of progressive dyspnea and mild sternal chest discomfort. Overall exercise capacity was 18% worse than expected for a sedentary male. Baseline EKG shows normal sinus rhythm with no significant ST or T-wave abnormalities. With stress , he develops around a millimeter to a millimeter and a half of down-sloping ST segment depression in the inferolateral leads with very slow, gradual recovery. PROCEDURE: This gentleman received 23.4 mCi of technetium-99 tetrofosmin for the stress portion of the examination. He returned 1 day later for the resting portion of the examination and received an additional 20.3 mCi. FINDINGS: 1. Raw Data: Raw data imaging shows overall good image quality. No significant source of artifact or interference is identified. 2. Quantitative Gated SPECT Imaging: Stress gated images show a normal-size left ventricular volume with an end diastolic volume of 116 cc. The ejection fraction is estimated at 59%, although there is a significant area of akinesis involving the apical portion of the left ventricle and the interventricular septum as well. 3. Quantitative Perfusion SPECT Imaging: Stress myocardial perfusion imaging shows an area of dense hypoperfusion involving the apex and the distal and mid anteroseptal wall that is nearly completely reversed or resolved on rest imaging , with just a small, mild focal apical area of hypoperfusion. IMPRESSION: 1. Markedly abnormal nuclear cardiac stress study with reduced exercise capacity and symptoms of dyspnea and mild angina associated with electrocardiogram changes. 2. Ischemic apical left ventricular systolic dysfunction with preserved ejection fraction. 3. Moderately large area of reversible hypoperfusion involving the territory of the mid and distal left anterior descending. DISCUSSION: Nuclear cardiac stress study suggests significant underlying ischemic heart disease. Cardiology consultation and cardiac catheterization are recommended. Dictated by: Saul Díaz M.D. on 06/28/2017 at 13:27 Transcribed by: ALIZE on 06/28/2017 at 18:45 Brief History HPI obtained by Dr. Lynn on 06/27 Patient is a 52 year old male with past medical history of HTN and CKD stage III who presented after an episode of chest pain during exertion yesterday afternoon while at work. Patient states the pain was a tight sensation that did not radiate. Pain was 7/10 and was relieved with rest. The episode lasted 5 minutes. Patient did not take any ASA or Nitro during the episode. Associated symptoms include SOB. Denies any diaphoresis, QUINTANILLA, N/V/D, or urinary sxs. He states that he has been having this chest tightness on exertion for the past week, but this episode was worse than his normal episodes. Patient reports that he has had a exercise stress test in the past through Dr. Hayes and that it was normal. He takes Metoprolol 100g daily, and feels that his medication makes him more tired than before. Patient denies any claudication symptoms during exertion. Hospital Course pt was admitted with typical angina, serial troponin and EKG didn't show active ischemia, however, stress test as markedly abnormal with reduced exercise capacity and symptoms of dyspnea and mild angina associated with electrocardiogram changes, Ischemic apical left ventricular systolic dysfunction with preserved ejection fraction, Moderately large area of reversible hypoperfusion involving the territory of the mid and distal left anterior descending. pt underwent Cardiac cath by on 06/29 which showed severe LAD lesion, attempted angioplasty but failed, pt was directly transferred from [facility] to [facility] by Cardiology Patient is a 52 year old male with past medical history of HTN and CKD stage III who presented after an episode of chest pain during exertion yesterday afternoon while at work. - Acute Unstable Angina, POA, Active, Patient presented after episode of CP that was worse than normal, Patient MARCO ANTONIO Risk Score 3, places pt at 13% risk for new PR; strong family h/o CAD with father's first PR at age 39. stress test 2days protocol showed markedly abnormal test, pt was loaded with DAPT, [id number] 06/27. -appreciate cardiology followup -cardiac cath today - continue aspirin,BB, high intensity statin, plavix held this AM. - Morphine PRN, NTG PRN for pain - Acute Uncontrolled HTN, POA, Active, Stable - Continue home dose of Losartan - Hold home dose of Metoprolol until after stress test - History of CKD Stage III, Chronic, Stable - Patient SCr on admission 1.72 without any recent baseline, reports no current urinary sxs. - Monitor dispo: cath tomorrow, likely d/c Thursday Daughter is primary point of contact: Sharona [phone] Patient is FULL CODE Exam Vital Signs (Last) Date Time Temp Pulse Resp B/P Pulse Ox O2 Delivery O2 Flow Rate FiO2 06/29/17 12:57 44 15 163/99 99 Room Air 06/29/17 05:12 36.6 Exam pt was directly transferred from [facility] to [facility]. Test 06/26/17 21:40 06/27/17 20:51 06/28/17 05:15 Magnesium Level 2.1mg/dL (1.6-2.6) Hold Davila Top Tube Received (Received) Troponin T 0.010ug/L (0.0-0.011) White Blood Count 7.0th/mm3 (3.8-10.1) Red Blood Count 5.17mil/mm3 (4.40-5.80) Hemoglobin 14.6g/dL (13.8-17.2) Hematocrit 42.7% (41.0-50.0) Mean Corpuscular Volume 82.6fL (81-100) Mean Corpuscular Hemoglobin 28.2pg (27.0-35.0) Mean Corpuscular Hemoglobin Concent 34.2% (32.0-37.0) Red Cell Distribution Width 13.3% (12.3-15.4) Platelet Count 241bil/L (150-400) Neutrophils (%) (Auto) 63.7% (40-74) Lymphocytes (%) (Auto) 22.9% (14-46) Monocytes (%) (Auto) 8.3% (4-12) Eosinophils (%) (Auto) 4.7% (0-5) Basophils (%) (Auto) 0.3% (0-3) Sodium Level 136mEq/L (134-144) Potassium Level 3.9mEq/L (3.5-5.2) Chloride Level 99mEq/L (97-108) Carbon Dioxide Level 24mmol/L (18-29) Blood Urea Nitrogen 21mg/dL (6-24) Creatinine 1.38mg/dL (0.76-1.27) Estimat Glomerular Filtration Rate 57mL/min (>59) Glucose Level 116mg/dL (60-99) Hemoglobin A1c 6.1% (4.8-5.6) Calcium Level 8.9mg/dL (8.5-10.1) Total Bilirubin 0.6mg/dL (0.0-1.2) Aspartate Amino Transf (AST/SGOT) 28U/L (0-50) Alanine Aminotransferase (ALT/SGPT) 37U/L (0-44) Alkaline Phosphatase 76U/L (25-150) Total Protein 6.7g/dL (6.4-8.4) Albumin 4.2g/dL (3.4-5.0) Triglycerides Level 92mg/dL (0-149) Cholesterol Level 180mg/dL (100-199) LDL Cholesterol, Calculated 124.600mg/dL (0-99) VLDL Cholesterol 18.400mg/dL HDL Cholesterol 37mg/dL (>39) Cholesterol/HDL Ratio 4.86 (0.0-4.4) Thyroid Stimulating Hormone (TSH) 1.670uIU/mL (0.450-4.500) Discharge Medications Discharge Medications Aspirin (Aspirin) 81 Mg Tablet 81 MG PO DAILY (Reported) Losartan Potassium (Losartan Potassium) 50 Mg Tablet 50 MG PO DAILY (Reported) Metoprolol Succinate ER (Metoprolol Succinate ER) 100 Mg Tab.er.24h 100 MG PO DAILY (Reported) As needed Ibuprofen (Advil) 200 Mg Capsule 800 MG PO DAILY PRN PRN For Pain (Reported) Followup Plan Disposition: [facility] Time spent 65min Rosmery Norris MD Jun 29, 2017 14:12
== END 2017-06-29 12:50 | disposition short-term general hospital (02) | DRG 287 ==
LOC: SED 21:00 → OBSVTOIN 06-27 01:41 → MPC 06-27 01:41
PROVIDERS: ADMIT Hospitalist; ATTEND Internal Medicine
PROC: 4A023N7 Measurement of Cardiac Sampling and Pressure, Left Heart, Percutaneous Approach (ICD-10-PCS; principal; 2017-06-29)
PROC: B2151ZZ Fluoroscopy of Left Heart using Low Osmolar Contrast (ICD-10-PCS; 2017-06-29)
PROC: B2111ZZ Fluoroscopy of Multiple Coronary Arteries using Low Osmolar Contrast (ICD-10-PCS; 2017-06-29)
DX: I25.110 Atherosclerotic heart disease of native coronary artery with unstable angina pectoris (principal); N17.9 Acute kidney failure, unspecified; I12.9 Hypertensive chronic kidney disease with stage 1 through stage 4 chronic kidney disease, or unspecified chronic kidney disease; N18.3 Chronic kidney disease, stage 3 (moderate); Z88.0 Allergy status to penicillin; Z79.82 Long term (current) use of aspirin; Z82.49 Family history of ischemic heart disease and other diseases of the circulatory system